=== PATIENT | male | born 1955 | race Caucasian/White ===

== ENCOUNTER → 2017-03-17 | Outpatient (CLI) | payer OTHER ==
[~2017-03-17] MED LIST: ASPUNK PO; LSNUNK PO; Toprol XL PO; ZCRUNK PO; amlodipine PO; nasonex
[2017-03-17 09:34] LABS: BASO % 0.7 %; BASO ABS # 0.05 K/uL (0-0.2); COMPLETE YES; EOS % 2.8 %; HEMATOCRIT 41.5 % (42-52); IG% 0.3 %; LYMPH ABS # 2.08 K/uL (1.2-3.4); MEAN CORPUSCULAR HEMOGLOBIN 29.4 pg (25-34); MEAN CORPUSCULAR HGB CONC 33.7 g/dl (32-36); MEAN PLATELET VOLUME 9.8 fL (7.4-10.4); MONO % 9.2 %; PLATELET COUNT 230 K/uL (130-400); RED BLOOD COUNT 4.77 M/uL (4.7-6.1); WHITE BLOOD COUNT 7.17 K/uL (4.8-10.8)
[2017-03-17 10:11] LABS: ALT/SGPT 51 U/L (12-78); AST/SGOT 22 U/L (15-37); BLOOD UREA NITROGEN 14 mg/dl (7-18); CALCIUM 8.8 mg/dl (8.5-10.1); CARBON DIOXIDE 29 mmol/L (21-32); CHLORIDE 99 mmol/L (98-107); CHOLESTEROL 143 mg/dl (0-200); GLUCOSE 112 mg/dl (70-99); POTASSIUM 3.9 mmol/L (3.5-5.1); SODIUM 134 mmol/L (136-145); TRIGLYCERIDES 160 mg/dl (0-150); VERY LOW DENSITY LIPOPROT CALC 32 mg/dl
[2017-03-17 10:14] LABS: CHOLESTEROL/HDL RATIO 3.8; HDL CHOLESTEROL 38 mg/dl; LDL CHOLESTEROL CALCULATED 73 mg/dl
== END | disposition home or self-care (01) ==
LOC: C.LAB1850 07:49
PROVIDERS: ATTEND Internal Medicine Cardiovascular Disease
DX: I65.29 Occlusion and stenosis of unspecified carotid artery (principal); E78.5 Hyperlipidemia, unspecified

== ENCOUNTER → 2017-10-18 | Outpatient (CLI) | payer OTHER ==
[2017-10-18 12:12] LABS: HEMATOCRIT 42.2 % (42-52); HEMOGLOBIN 14.6 g/dL (14.0-18.0); MEAN CELL VOLUME 85.9 fL (80-100); MEAN CORPUSCULAR HEMOGLOBIN 29.7 pg (25-34); MEAN CORPUSCULAR HGB CONC 34.6 g/dl (32-36); MEAN PLATELET VOLUME 9.9 fL (7.4-10.4); PLATELET COUNT 234 K/uL (130-400); RED CELL DISTRIBUTION WIDTH CV 13.4 % (11.5-14.5); RED CELL DISTRIBUTION WIDTH SD 42.1 fL (36.4-46.3); WHITE BLOOD COUNT 7.24 K/uL (4.8-10.8)
[2017-10-18 12:36] LABS: BLOOD UREA NITROGEN 15 mg/dl (7-18); CALCIUM 9.3 mg/dl (8.5-10.1); CARBON DIOXIDE 27 mmol/L (21-32); CREATININE 1.03 mg/dl (0.60-1.40); GLUCOSE 113 mg/dl (70-99); SODIUM 134 mmol/L (136-145)
[2017-10-18 12:42] LABS: ALT/SGPT 46 U/L (12-78); AST/SGOT 20 U/L (15-37)
== END | disposition home or self-care (01) ==
LOC: C.LAB1850 10:32
PROVIDERS: ATTEND Internal Medicine
DX: I10 Essential (primary) hypertension (principal); E78.5 Hyperlipidemia, unspecified; I25.10 Atherosclerotic heart disease of native coronary artery without angina pectoris; R73.01 Impaired fasting glucose; R97.20 Elevated prostate specific antigen [PSA]

== ENCOUNTER 2020-01-07 19:17 | Inpatient (IN) ==
--- NOTE | 2020-01-07 19:44 | Emergency Department Note ---
Impression & Plan Hypotension, Syncope, Acute dehydration, Elevated troponin ED Provider Note NAME: PATRICIA GEORGE AGE: 64 SEX: M : 1955 ARRIVES VIA: Ambulance INFORMANT: [Patient][ems, nurses] ED PROVIDER(S): [Abel Etienne MD] CHIEF COMPLAINT: Syncope HISTORY OF PRESENT ILLNESS: The patient is a 64-year-old male who presents to the ER by ambulance after a brief syncopal event. The patient was in baseline health this morning. He ate breakfast. He was golfing all day. It was 85+ degrees outside and quite bari. He was hot and tired and lightheaded. He only consumed a small amount of liquid during the golf outing. On the way home, he was driving and felt a bit lightheaded. The patient states that while he was at home, he was sitting on his porch, he drank a beer. The patient then began feeling weak and even more lightheaded. He went into the house and according to family, had a brief syncopal event. The patient was sitting and was helped down, there was no trauma. He states that he felt faint and began to sweat and had some loss of vision and then he had the syncopal event. He was out for less than 1 minute. There was no chest pain, no shortness of breath. The patient states that he already feels better. He thinks he just overdid it today outside in the heat. As per EMS, the patient's initial blood pressure was low. REVIEW OF SYSTEMS: See HPI for pertinent positives and negatives. A total of ten systems were reviewed and were otherwise negative. PMHx/PSHx: See Below SOCIAL HISTORY: See Below. PHYSICAL EXAM: GENERAL: Patient is in no acute distress. Face appears flushed. HEENT: No acute trauma, normocephalic atraumatic, mucous membranes moist, no nasal congestion, no scleral icterus. NECK: No stridor, no adenopathy, no meningismus, trachea is midline. LUNGS: Clear to auscultation bilaterally, no wheeze, no rhonchi, breath sounds equal. HEART: Without murmurs gallops or rubs, regular rate and rhythm. ABDOMEN: Soft, nontender, bowel sounds positive, no hernias, no peritonitis. EXTREMITIES: No cyanosis or edema, full range of motion of all the joints without pain or difficulty, no signs for acute trauma. NEUROLOGIC: Oriented x 3, no acute motor or sensory deficits, no focal weakness. SKIN: No rash, no jaundice, no diaphoresis. DIFFERENTIAL DIAGNOSIS: Infection, dehydration, metabolic abnormality, heat exhaustion, dysrhythmia, hypo/hyperglycemia, electrolyte disturbance, anemia, hypoxia, cardiac sources, intracerebral event, toxicologic, neurologic, as well as other pathologies. EMERGENCY DEPARTMENT COURSE/PROCEDURES: ECG: Indication was syncope. The EKG shows a sinus rhythm with a first-degree AV block. There is some baseline artifact. There is a potential old inferior infarct noted. The rate is 61. QTc is 430. There is no ST elevation, no PVCs. There are no old ECGs available for comparison. Continuous Cardiac Monitoring: An order was placed for continuous cardiac monitoring. The monitor shows a rate of 72 with sinus rhythm and a first-degree AV block. Critical Care Note: I have personally spent greater than 36 minutes of critical care time in the direct management of this patient. This includes bedside care, interpretation of diagnostic studies, and testing, discussion with consultants, patient, and family members, and other required patient management activities. This 36 minutes is in excess of all separately billable procedures. MEDICAL DECISION MAKING: There is no leukocytosis or concerning anemia. There is a normal platelet count. There is some elevation to the creatinine consistent with dehydration. No concerning electrolyte abnormality in need of emergent correction. No evidence for liver enzyme elevation. EKG showed a sinus rhythm, there was no acute ischemic change. Cardiac enzyme testing x1 is elevated at 1.46. This troponin elevation is consistent with potential cardiac injury or strain. Chest film did not show pneumonia or CHF. There was no significant mediastinal widening. The patient was hypotensive when first seen by the paramedics. Here in the ED, his blood pressure was slightly low but acceptable. He was given IV saline, 2 L. The patient feels markedly better since his 2 L have been administered, his blood pressure has improved. He feels more back to baseline. I spoke to the patient about his elevated troponin value, he understands that this is a concern. Hospitalization has been recommended for further work-up. The on-call hospitalist has been consulted. Further cardiac work-up is in order. Dysrhythmia, [place] are both possibilities Past Med/Surg History Medical History Arthritis (Chronic) CAD in [place] artery (Chronic) Carotid artery stenosis (Chronic) Enlarged prostate without lower urinary tract symptoms (luts) (Chronic) Essential hypertension (Chronic) Hyperlipidemia (Chronic) Prostate cancer (Chronic 01/15/18) "Rising PSA. Pretreatment PSA 6.840 Status post ultrasound-guided biopsies January 15, 2018 Adenocarcinoma the prostate [place] 3+3 and 3+4 Prostate volume 98 Prostate density 0.069 Status post completion of radiation therapy July 06, 2018. He received 7000 cGy utilizing hypo-fractionation. Rosacea (Chronic) Surgical History S/P tonsillectomy Family History Father Coronary arteriosclerosis Prostate cancer FH: deafness or hearing loss Hypertension Myocardial infarction Brother Coronary arteriosclerosis Prostate cancer Myocardial infarction Mother Lung cancer Hypertension Unknown FH: deafness or hearing loss Hypertension Uncle Myocardial infarction Denies family history of Ovarian cancer Breast cancer Colorectal cancer Social History Preferred Language: Romanian Communication Ability: Effective Dock Supervisor Required: No Beliefs That Will Affect Care: None marital status: Current Living Situation: Spouse current occupational status: retired Other Information That Helps Us Care for You: No Feels Safe at Home: Yes Safety Concerns: Feels Safe At This Time Smoking Status: Unknown if ever smoked Hx Alcohol Use: No Hx Substance Use: No Childhood Exposure to Second-Hand Smoke: No Dental Care, Regularly: Yes Physical Activity Frequency: 3-4 Times per Week Seatbelt Use: always Sunscreen Use: Yes Allergies Allergies Allergy/AdvReac Type Severity Reaction Status Date / Time No Known Allergies Allergy Verified 01/07/20 21:15 Home Meds Home Medications Medication Instructions Recorded Confirmed nitroglycerin 0.4 mg sublingual 0.4 mg SL DIRECTED PRN #25 tab 05/07/19 01/07/20 tablet aspirin 81 mg PO QAM 01/07/20 01/07/20 atorvastatin 80 mg PO HS 01/07/20 01/07/20 hydrochlorothiazide 12.5 mg PO QAM 01/07/20 01/07/20 lisinopril 40 mg PO QAM 01/07/20 01/07/20 metoprolol succinate 50 mg PO QAM 01/07/20 01/07/20 tamsulosin 0.4 mg PO QPM 01/07/20 01/07/20 Results & Data (ED) Vital Signs Vital Signs - 24 hr 01/07/20 19:25 01/07/20 19:30 01/07/20 19:34 Temperature 36.4 C L Temperature Source Oral Pulse Rate 61 59 L 61 Pulse Rate from SpO2 Sensor 57 L Pulse Rhythm Regular Pulse Strength Normal Respiratory Rate 12 14 24 Respiratory Effort / Characteristics Non-Labored Spontaneous Respiratory Depth Normal Respiratory Pattern Regular Blood Pressure 102/57 L 100/57 L 102/57 L Blood Pressure Mean 65 61 72 Blood Pressure Position Sitting Pulse Oximetry 92 98 Oxygen Delivery Method Room Air Sepsis Recent Fever Within 48 Hours No Sepsis Action Taken by Nursing No Action Required 01/07/20 20:30 01/07/20 21:01 01/07/20 21:30 Temperature Temperature Source Pulse Rate 65 73 72 Pulse Rate from SpO2 Sensor 65 73 70 Pulse Rhythm Pulse Strength Respiratory Rate 17 17 18 Respiratory Effort / Characteristics Respiratory Depth Respiratory Pattern Blood Pressure 104/61 139/77 135/73 Blood Pressure Mean 73 95 103 Blood Pressure Position Pulse Oximetry 95 98 98 Oxygen Delivery Method Sepsis Recent Fever Within 48 Hours Sepsis Action Taken by [place] Medications Current Medication List: was personally reviewed by me Laboratory Data Attestation: I reviewed the patient's lab results. Result diagrams: 01/07/20 20:01 01/07/20 22:59 Lab Results 01/07/20 01/07/20 Range/Units 20:01 20:01 WBC 10.04 (4.8-10.8) K/uL RBC 4.61 L (4.7-6.1) M/uL Hgb 13.4 L (14.0-18.0) g/dL Hct 39.2 L (42-52) % MCV 85.0 (80-100) fL MCH 29.1 (25-34) pg MCHC 34.2 (32-36) g/dL RDW Std Deviation 41.2 (36.4-46.3) fL RDW Coeff of [place] 13.5 (11.5-14.5) % Plt Count 190 (130-400) K/uL MPV 9.6 (7.4-10.4) fL Immature Gran % (Auto) 0.1 % Neut % (Auto) 80.2 % Lymph % (Auto) 10.2 % [place] % (Auto) 8.0 % Eos % (Auto) 1.3 % Baso % (Auto) 0.2 % Immature Gran # (Auto) 0.01 (0.00-0.02) K/uL Neut # (Auto) 8.06 H (1.4-6.5) K/uL Lymph # (Auto) 1.02 L (1.2-3.4) K/uL [place] # (Auto) 0.80 H (0.11-0.59) K/uL Eos # (Auto) 0.13 (0-0.5) K/uL Baso # (Auto) 0.02 (0-0.2) K/uL Sodium 135 L (136-145) mmol/L Potassium 3.5 (3.5-5.1) mmol/L Chloride 102 (98-107) mmol/L Carbon Dioxide 25 (21-32) mmol/L Anion Gap 8.0 (3-11) BUN 23 H (7-18) mg/dl Creatinine 1.55 H (0.6-1.4) mg/dl Est Cr Clr Drug Dosing 57.6 ml/min Est GFR ( Amer) 53.7 Est GFR (Non-Af Amer) 46.3 BUN/Creatinine Ratio 14.8 (10-20) Glucose 115 H (70-99) mg/dl Calcium 8.8 (8.5-10.1) mg/dl Magnesium 2.7 H (1.8-2.4) mg/dl Total Bilirubin 0.7 (0.2-1) mg/dl AST 22 (15-37) U/L ALT 37 (12-78) U/L Alkaline Phosphatase 77 (45-117) U/L Troponin I 1.460 H* (0-0.045) ng/ml Total Protein 7.0 (6.4-8.2) gm/dl Albumin 3.6 (3.4-5.0) gm/dl Globulin 3.4 (2.5-4.0) gm/dl Albumin/Globulin Ratio 1.1 (0.9-2) Administered Medications Sodium Chloride (Nss 1000ml) 1,000 mls @ 80 mls/hr IV .[id number] [facility] Stop: 02/06/20 22:38 Last Admin: 01/07/20 23:10 Dose: 80 mls/hr Documented by: [id number] Heparin Sodium/Dextrose (Heparin Sodium/Dextrose) 25,000 units in 500 mls @ 31 mls/hr IV .Q16H8M [facility]; Protocol Stop: 02/06/20 22:38 Last Admin: 01/07/20 23:29 Dose: 1,550 units/hr, 31 mls/hr Documented by: [id number] Cosigned by: [id number] Discontinued Medications Sodium Chloride (Nss 1000ml) 1,000 mls @ 999 mls/hr IV .Q1H1M [facility] Stop: 01/07/20 20:45 Last Infusion: 01/07/20 20:52 Dose: 0 mls/hr Documented by: [id number] Admin: 01/07/20 19:45 Dose: 999 mls/hr Documented by: [id number] Sodium Chloride (Nss 1000ml) 1,000 mls @ 999 mls/hr IV .Q1H1M [facility] Stop: 01/07/20 21:38 Last Infusion: 01/07/20 22:04 Dose: 0 mls/hr Documented by: [id number] Admin: 01/07/20 20:57 Dose: 999 mls/hr Documented by: [id number] Imaging Data Radiologist's Impression: XR chest 1V portable HISTORY: weakness COMPARISON: Chest 09/12/2018. FINDINGS: The lungs are clear. Cardiac silhouette is normal in size. No pleural effusions. No pneumothorax. IMPRESSION: No acute process. Blood Pressure Blood Pressure Findings: Elevated blood pressure Blood Pressure Disposition: further management by hospitalist Discharge Plan Visit Data *Final* Discharge Date/Time: 01/07/20 22:10 Chief Complaint: Syncope Stated Complaint: SYNCOPE ED Provider: Abel Etienne Discharge Problem: Hypotension, Syncope, Acute dehydration, Elevated troponin Patient Disposition: Admitted As Inpatient Condition: Good Discharge Instructions Interventions: ED Discharge Assessment Last Done: 01/07/20 22:10 Discharge Problem: Hypotension Qualifiers: Hypotension type: unspecified hypotension type Qualified Code(s): I95.9 - Hypotension, unspecified Syncope Qualifiers: Syncope type: unspecified Qualified Code(s): R55 - Syncope and collapse
[2020-01-07] MEDS ORDERED: SODIUM CHLORIDE 0.9% 1000ML 1,000 ML IV SCH (19:45)
--- NOTE | 2020-01-07 20:09 | XRay Report ---
XR chest 1V portable HISTORY: weakness COMPARISON: Chest 09/12/2018. FINDINGS: The lungs are clear. Cardiac silhouette is normal in size. No pleural effusions. No pneumot horax. IMPRESSION: No acute process. ACT 112: Negative or not required by law. Electronically signed by: Allan Retana M.D. 01/07/2020 8:07 PM
[2020-01-07 20:16] LABS: Basophils # (auto) 0.02 K/uL (0-0.2); Basophils % (auto) 0.2 %; Eosinophils # (auto) 0.13 K/uL (0-0.5); Eosinophils % (auto) 1.3 %; Hematocrit (blood only) 39.2 % (42-52); Hemoglobin 13.4 g/dL (14.0-18.0); Immature Granulocytes # (auto) 0.01 K/uL (0.00-0.02); Immature Granulocytes % (auto) 0.1 %; Lymphocytes # (auto) 1.02 K/uL (1.2-3.4); Lymphocytes % (auto) 10.2 %; Mean Corpuscular Hemoglobin 29.1 pg (25-34); Mean Corpuscular Hgb Conc 34.2 g/dL (32-36); Mean Platelet Volume 9.6 fL (7.4-10.4); Neutrophils # (auto) 8.06 K/uL (1.4-6.5); Neutrophils % (auto) 80.2 %; Platelet Count 190 K/uL (130-400); RDW Coefficient of Variation 13.5 % (11.5-14.5); RDW Standard Deviation 41.2 fL (36.4-46.3); Red Blood Count 4.61 M/uL (4.7-6.1); White Blood Count 10.04 K/uL (4.8-10.8)
[2020-01-07 20:33] LABS: Albumin Level 3.6 gm/dl (3.4-5.0); BUN Creatinine Ratio 14.8 (10-20); Calcium 8.8 mg/dl (8.5-10.1); Creatinine Clr Calc Pharmacy 57.6 ml/min; Est GFR (African American) 53.7; Est GFR (Non-African American) 46.3; Magnesium 2.7 mg/dl (1.8-2.4); Potassium 3.5 mmol/L (3.5-5.1)
[2020-01-07] MEDS ORDERED: SODIUM CHLORIDE 0.9% 1000ML 1,000 ML IV ONE (20:38)
[2020-01-07 20:49] LABS: Albumin Globulin Ratio 1.1 (0.9-2); Bilirubin,Total 0.7 mg/dl (0.2-1); Globulin 3.4 gm/dl (2.5-4.0); Troponin I 1.46 ng/ml (0-0.045)
--- NOTE | 2020-01-07 21:45 | History & Physical Report ---
Date of Service January 07, 2020 Assessment & Plan (1) Non-STEMI (non-ST elevated myocardial infarction): Non-STEMI/CAD/hypertension- The patient will be admitted to telemetry for serial cardiac enzymes, serial EKG's, cardiac rhythm monitoring and a 2-D echocardiogram with Dopplers. Heparin drip standard dose per protocol without bolus. Continue aspirin 81 mg every morning. Continue metoprolol succinate 50 mg every morning Hold HCTZ and lisinopril 40 mg daily for now due to acute kidney injury. Consult cardiology. Follows with Dr. Barker Present on Admission?: Yes (2) Syncope: Symptoms seem to be primarily related to acute dehydration, essentially a form of heat exhaustion. However, patient has had a non-STEMI, as noted above. Present on Admission?: Yes (3) Acute kidney injury: Creatinine 1.55 upon admission, with baseline 1.03-1.16. We will hold HCTZ and lisinopril. Repeat laboratories in a.m., after normal saline IV fluid rehydration, and may resume lisinopril at that time if creatinine improved sufficiently Present on Admission?: Yes (4) Acute dehydration: Received IV fluid bolus while in ED. NSS at 80 mL's per hour Present on Admission?: Yes (5) CAD in [place] artery: See above Present on Admission?: Yes (6) Essential hypertension: See above Present on Admission?: Yes (7) Hyperlipidemia: Continue atorvastatin 80 mg at bedtime Present on Admission?: Yes (8) Prostate cancer: Continue tamsulosin 0.4 mg p.o. in the evening Present on Admission?: Yes History of Present Illness Chief Complaint: The patient presents to the emergency department by ambulance after a syncopal event that occurred just prior to arrival. Primary Care Provider: Young Sosa MD The patient is a 64-year-old male with a past medical history including CAD, hyperlipidemia, hypertension, carotid artery stenosis, arthritis and prostate cancer. He reports that he was outside golfing on a hot day, and had not adequately kept up with his fluid intake. On his way home he felt somewhat disoriented, and after arriving home and having something to eat and a beer, he had a syncopal episode witnessed by his daughter of duration less than 1 minute. He did not have loss of bowel or bladder control. At this time he feels back to his baseline. He did not have any premonitory symptoms of chest pain, short ness of breath, weakness of arms or legs. He has not had any recent travels or sick exposures, and denies any COVID-19 exposures. Work-up in the emergency department included laboratories with a troponin of 1.46, and a creatinine of 1.55. At that time, we started the patient on a heparin drip. Allergies Allergy/AdvReac Type Severity Reaction Status Date / Time No Known Allergies Allergy Verified 01/07/20 21:15 Home Medications Home Medications Medication Instructions Recorded Confirmed Type nitroglycerin 0.4 mg sublingual 0.4 mg SL DIRECTED PRN #25 tab 05/07/19 01/07/20 History tablet aspirin 81 mg PO QAM 01/07/20 01/07/20 History atorvastatin 80 mg PO HS 01/07/20 01/07/20 History hydrochlorothiazide 12.5 mg PO QAM 01/07/20 01/07/20 History lisinopril 40 mg PO QAM 01/07/20 01/07/20 History metoprolol succinate 50 mg PO QAM 01/07/20 01/07/20 History tamsulosin 0.4 mg PO QPM 01/07/20 01/07/20 History Past Med/Surg History Medical History Arthritis (Chronic) CAD in [place] artery (Chronic) Carotid artery stenosis (Chronic) Enlarged prostate without lower urinary tract symptoms (luts) (Chronic) Essential hypertension (Chronic) Hyperlipidemia (Chronic) Prostate cancer (Chronic 01/15/18) "Rising PSA. Pretreatment PSA 6.840 Status post ultrasound-guided biopsies January 15, 2018 Adenocarcinoma the prostate [place] 3+3 and 3+4 Prostate volume 98 Prostate density 0.069 Status post completion of radiation therapy July 06, 2018. He received 7000 cGy utilizing hypo-fractionation. Rosacea (Chronic) Surgical History S/P tonsillectomy Family History Father Coronary arteriosclerosis Prostate cancer FH: deafness or hearing loss Hypertension Myocardial infarction Brother Coronary arteriosclerosis Prostate cancer Myocardial infarction Mother Lung cancer Hypertension Unknown FH: deafness or hearing loss Hypertension Uncle Myocardial infarction Denies family history of Ovarian cancer Breast cancer Colorectal cancer Social History Preferred Language: Irish Communication Ability: Effective Batch Tank Controller Required: No Beliefs That Will Affect Care: None marital status: Current Living Situation: Spouse current occupational status: retired Other Information That Helps Us Care for You: No Feels Safe at Home: Yes Safety Concerns: Feels Safe At This Time Smoking Status: Unknown if ever smoked Hx Alcohol Use: No Hx Substance Use: No Childhood Exposure to Second-Hand Smoke: No Dental Care, Regularly: Yes Physical Activity Frequency: 3-4 Times per Week Seatbelt Use: always Sunscreen Use: Yes Review of Systems Review of Systems: The patient denies chest pain, palpitations, shortness of breath, dyspnea on exertion, cough, lower extremity swelling, sore throat, fevers, chills, sweats, weight change, fatigue, nausea, vomiting, diarrhea , constipation, abdominal pain, pelvic pain, blood in urine or stool, dysuria, urinary frequency or urgency, lightheadedness, dizziness, headache, rash, abnormal bruising or bleeding, imbalance, focal weakness, numbness or tingling in arms or legs, generalized arthralgias or myalgias, back or neck pain, or night sweats. The review of systems is otherwise negative other than for that already noted above, and at least 10 systems have been reviewed. Physical Exam Physical Exam: The patient is awake, alert and oriented 3, well developed and well nourished, normocephalic and atraumatic, lying in bed and in no acute distress. HEENT--PERRL, EOMI, mucous membranes and oropharynx normal. Neck--supple. No JVD. No bruits. Thyroid normal, trachea midline, no adenopathy. Heart--normal S1 and S2. No murmurs, rubs or gallops. Lungs--clear bilaterally, no respiratory distress, no accessory muscle use. Abdomen--normal bowel sounds and soft. Nontender. Nondistended. Obese. Extremities--no cyanosis or clubbing. No edema. Dermatologic--normal skin turgor, normal color, no abnormal lymph nodes, no rash. Neurologic--cranial nerves II through XII grossly intact. Rheumatologic--normal range of motion. Psychiatric--normal affect. Results & Data Results & Data ([facility]) Vital Signs (Past 12 Hours) Vital Signs Temp Pulse Resp BP Pulse Ox 01/07/20 21:30 72 18 135/73 98 01/07/20 21:01 73 17 139/77 98 01/07/20 20:30 65 17 104/61 95 01/07/20 19:34 97.5 F L 61 24 102/57 L 98 01/07/20 19:30 59 L 14 100/57 L 92 01/07/20 19:25 61 12 102/57 L Laboratory Results Laboratory Results WBC 10.04 K/uL (4.8-10.8) 01/07/20 20: RBC 4.61 M/uL (4.7-6.1) L 01/07/20 20: Hgb 13.4 g/dL (14.0-18.0) L 01/07/20 20:01 Hct 39.2 % (42-52) L 01/07/20 20: MCV 85.0 fL (80-100) 01/07/20 20: MCH 29.1 pg (25-34) 01/07/20 20: MCHC 34.2 g/dL (32-36) 01/07/20 20: RDW Std Deviation 41.2 fL (36.4-46.3) 01/07/20 20: RDW Coeff of [place] 13.5 % (11.5-14.5) 01/07/20 20: Plt Count 190 K/uL (130-400) 01/07/20 20: MPV 9.6 fL (7.4-10.4) 01/07/20 20: Immature Gran % (Auto) 0.1 % 01/07/20 20:01 Neut % (Auto) 80.2 % 01/07/20 20: Lymph % (Auto) 10.2 % 01/07/20 20: [place] % (Auto) 8.0 % 01/07/20 20:01 Eos % (Auto) 1.3 % 01/07/20 20:01 Baso % (Auto) 0.2 % 01/07/20 20:01 Immature Gran # (Auto) 0.01 K/uL (0.00-0.02) 01/07/20 20:01 Neut # (Auto) 8.06 K/uL (1.4-6.5) H 01/07/20 20:01 Lymph # (Auto) 1.02 K/uL (1.2-3.4) L 01/07/20 20:01 [place] # (Auto) 0.80 K/uL (0.11-0.59) H 01/07/20 20:01 Eos # (Auto) 0.13 K/uL (0-0.5) 01/07/20 20:01 Baso # (Auto) 0.02 K/uL (0-0.2) 01/07/20 20:01 APTT 24.1 Seconds (21.0-31.0) 01/07/20 23:01 PTT Ratio 0.9 01/07/20 23:01 Sodium 135 mmol/L (136-145) L 01/08/20 02:22 Potassium 4.3 mmol/L (3.5-5.1) D 01/08/20 03:09 Chloride 103 mmol/L (98-107) 01/08/20 02:22 Carbon Dioxide 25 mmol/L (21-32) 01/08/20 02:22 Anion Gap 7.0 (3-11) 01/08/20 02:22 BUN 18 mg/dl (7-18) 01/08/20 02:22 Creatinine 1.17 mg/dl (0.6-1.4) 01/08/20 02:22 Est Cr Clr Drug Dosing 76.3 ml/min 01/08/20 02:22 Est GFR ( Amer) 75.4 01/08/20 02:22 Est GFR (Non-Af Amer) 65.0 01/08/20 02:22 BUN/Creatinine Ratio 15.8 (10-20) 01/08/20 02:22 Glucose 122 mg/dl (70-99) H 01/08/20 02:22 Calcium 8.5 mg/dl (8.5-10.1) 01/08/20 02:22 Magnesium 2.7 mg/dl (1.8-2.4) H 01/07/20 20:01 Total Bilirubin 0.7 mg/dl (0.2-1) 01/07/20 20:01 AST 22 U/L (15-37) 01/07/20 20:01 ALT 37 U/L (12-78) 01/07/20 20:01 Alkaline Phosphatase 77 U/L (45-117) 01/07/20 20:01 Troponin I 2.220 ng/ml (0-0.045) H* 01/07/20 22:59 Total Protein 7.0 gm/dl (6.4-8.2) 01/07/20 20:01 Albumin 3.6 gm/dl (3.4-5.0) 01/07/20 20:01 Globulin 3.4 gm/dl (2.5-4.0) 01/07/20 20:01 Albumin/Globulin Ratio 1.1 (0.9-2) 01/07/20 20:01 Urine Color Yellow 01/08/20 02:30 Urine Appearance Clear (Clear) 01/08/20 02:30 Urine pH 6.5 (4.5-7.5) 01/08/20 02:30 Ur Specific [place] 1.015 (1.000-1.030) 01/08/20 02:30 Urine Protein Negative (Negative) 01/08/20 02:30 Urine Glucose (UA) Negative (Negative) 01/08/20 02:30 Urine Ketones Negative (Negative) 01/08/20 02:30 Urine Blood Negative (Negative) 01/08/20 02:30 Urine Nitrite Negative (Negative) 01/08/20 02:30 Urine Bilirubin Negative (Negative) 01/08/20 02:30 Urine Urobilinogen Negative (Negative) 01/08/20 02:30 Ur Leukocyte Esterase Negative (Negative) 01/08/20 02:30 Diagnostic Findings [place], [place] [phone] XRay Report Patient: PATRICIA GEORGE Date: 01/07/20 MR#: [id number]: [address] Acct ID:[id number]: Date: [address] [place] [address] Zip: [place] [address] Age: 64Location: ED Sex: M Room/Bed: Att Phy:Diagnosis: SYNCOPE Harini Phy: Young Sosa MDService Date: 01/07/20 Fam Phy:Interpreting Phy: Allan Retana MD Admit Phy: Ordering Phy: Abel Etienne M.D. cc: ~ XR chest 1V portable HISTORY: weakness COMPARISON: Chest 09/12/2018. FINDINGS: The lungs are clear. Cardiac silhouette is normal in size. No pleural effusions. No pneumothorax. IMPRESSION: No acute process. ACT 112: Negative or not required by law. Electronically signed by: Allan Retana M.D. 01/07/2020 8:07 PM Dictated: 01/07/202003 Transcribed: 01/07/202003 Code Status & VTE Plan Code Status Full code VTE Prophylaxis Plan VTE Prophylaxis will be ordered: Yes PG Care Time/CCT Total # of Minutes Spent Total Time Spent with Patient: Total time spent is greater than 50% in coordination of care (as documented) at patient's floor/unit and/or counseling patient: Coding Level of Care Code 24669 Initial Inpt Care Lvl 3 Diagnoses Non-STEMI (non-ST elevated myocardial infarction) I21.4 Syncope R55 Syncope type: unspecified Acute kidney injury N17.9 Acute dehydration E86.0 CAD in [place] artery I25.10 Essential hypertension I10 Hyperlipidemia E78.5 Prostate cancer C61 (1) Syncope Syncope type: unspecified Qualified Code(s): R55 - Syncope and collapse
[2020-01-07] MEDS ORDERED: ALUMINUM/MAGNESIUM SUSP 30 ML UDC PO PRN (22:39)
[2020-01-07] MEDS ORDERED: MAGNESIUM HYDROXIDE SUSP 30 ML UDC PO PRN (22:39)
[2020-01-07] MEDS ORDERED: ONDANSETRON INJ 2 MG/ML 2 ML VIAL IV PRN (22:39)
[2020-01-07] MEDS ORDERED: Heparin IV Standard *NO* Bolus IV ONE (22:39)
[2020-01-07] MEDS ORDERED: ACETAMINOPHEN 325 MG TAB PO PRN (22:39)
[2020-01-07] MEDS ORDERED: NITROGLYCERIN SL 0.4 MG/TAB TAB SL PRN (22:39)
[2020-01-07] MEDS ORDERED: HEPARIN SODIUM/DEXTROSE 25,000 UNITS/500 ML BAG IV SCH (22:39)
[2020-01-07] MEDS: SODIUM CHLORIDE 0.9% 1000ML 1,000 ML IV SCH (23:10)
[2020-01-07 23:22] LABS: Partial Thromboplastin Ratio 0.9; Partial Thromboplastin Time 24.1 Seconds (21.0-31.0)
[2020-01-07 23:27] LABS: BUN Creatinine Ratio 14.9 (10-20); Calcium 9.1 mg/dl (8.5-10.1); Est GFR (African American) 58.6; Est GFR (Non-African American) 50.6; Potassium 3.7 mmol/L (3.5-5.1)
[2020-01-07 23:38] LABS: Troponin I 2.22 ng/ml (0-0.045)
[2020-01-07] MEDS ORDERED: SODIUM CHLORIDE 0.65% NA SOLN 45 ML (OCEAN) PRN (23:48)
[2020-01-08 02:51] LABS: Appearance Urine Clear (Clear); Bilirubin Urine Negative (Negative); Blood Urine Negative (Negative); Color Urine Yellow; Glucose Urine UA Negative (Negative); Ketones Urine Negative (Negative); Leukocyte Esterase Urine Negative (Negative); Nitrite Urine Negative (Negative); Protein Urine Negative (Negative); Specific Gravity Urine 1.015 (1.000-1.030); Urobilinogen Urine Negative (Negative); pH Urine 6.5 (4.5-7.5)
[2020-01-08 02:59] LABS: BUN Creatinine Ratio 15.8 (10-20); Calcium 8.5 mg/dl (8.5-10.1); Creatinine Clr Calc Pharmacy 76.3 ml/min; Est GFR (African American) 75.4
[2020-01-08 06:12] LABS: Basophils # (auto) 0.02 K/uL (0-0.2); Basophils % (auto) 0.2 %; Eosinophils # (auto) 0.02 K/uL (0-0.5); Eosinophils % (auto) 0.2 %; Hematocrit (blood only) 40.5 % (42-52); Hemoglobin 13.8 g/dL (14.0-18.0); Immature Granulocytes # (auto) 0.03 K/uL (0.00-0.02); Immature Granulocytes % (auto) 0.2 %; Lymphocytes % (auto) 7.7 %; Mean Corpuscular Hgb Conc 34.1 g/dL (32-36); Mean Corpuscular Volume 85.1 fL (80-100); Mean Platelet Volume 9.6 fL (7.4-10.4); Monocytes # (auto) 0.62 K/uL (0.11-0.59); Monocytes % (auto) 4.8 %; Neutrophils # (auto) 11.31 K/uL (1.4-6.5); Neutrophils % (auto) 86.9 %; Platelet Count 205 K/uL (130-400); RDW Coefficient of Variation 13.5 % (11.5-14.5); RDW Standard Deviation 41.6 fL (36.4-46.3); Red Blood Count 4.76 M/uL (4.7-6.1)
[2020-01-08 06:16] LABS: Estimated Average Glucose 123 mg/dl; Hemoglobin A1C 5.9 % (4.5-5.6)
[2020-01-08 06:25] LABS: Partial Thromboplastin Ratio 1.2; Partial Thromboplastin Time 34.4 Seconds (21.0-31.0); Prothrombin Time 10.7 Seconds (9.0-12.0)
[2020-01-08] MEDS ORDERED: HEPARIN IV BOLUS 7,000 UNITS in SYRINGE 0 ML IV ONE (06:45)
[2020-01-08 06:46] LABS: BUN Creatinine Ratio 15.6 (10-20); Calcium 9.1 mg/dl (8.5-10.1); Creatinine Clr Calc Pharmacy 82.7 ml/min; Est GFR (Non-African American) 71.6; Potassium 3.9 mmol/L (3.5-5.1)
[2020-01-08 06:47] LABS: Albumin Level 3.7 gm/dl (3.4-5.0); BUN Creatinine Ratio 15.2 (10-20); Calcium 8.7 mg/dl (8.5-10.1); Creatinine Clr Calc Pharmacy 81.9 ml/min; Est GFR (African American) 82.1; Est GFR (Non-African American) 70.9; Magnesium 2.3 mg/dl (1.8-2.4); Potassium 3.8 mmol/L (3.5-5.1)
[2020-01-08 06:51] LABS: Bilirubin,Total 1.1 mg/dl (0.2-1); Globulin 3.6 gm/dl (2.5-4.0); Total Protein 7.3 gm/dl (6.4-8.2)
[2020-01-08 07:03] LABS: Troponin I 2.03 ng/ml (0-0.045)
[2020-01-08] MEDS ORDERED: lisinopriL 40 MG TAB PO SCH (09:00)
[2020-01-08] MEDS ORDERED: METOPROLOL SUCC 50MG EXT REL TAB PO SCH (09:00)
[2020-01-08] MEDS ORDERED: ASPIRIN 81 MG ECTAB PO SCH (09:00)
[2020-01-08] MEDS: SODIUM CHLORIDE 0.9% 1000ML 1,000 ML IV SCH (11:20)
[2020-01-08 12:07] VITALS: BP 117/71; PULSE 66; TEMP 98.1; O2SAT 95
--- NOTE | 2020-01-08 12:30 | Discharge Summary ---
Date of Service January 08, 2020 Admission HPI Per Admitting Provider The patient is a 64-year-old male with a past medical history including CAD, hyperlipidemia, hypertension, carotid artery stenosis, arthritis and prostate cancer. He reports that he was outside golfing on a hot day, and had not adequately kept up with his fluid intake. On his way home he felt somewhat disoriented, and after arriving home and having something to eat and a beer, he had a syncopal episode witnessed by his daughter of duration less than 1 minute. He did not have loss of bowel or bladder control. At this time he feels back to his baseline. He did not have any premonitory symptoms of chest pain, sh ortness of breath, weakness of arms or legs. He has not had any recent travels or sick exposures, and denies any COVID-19 exposures. Work-up in the emergency department included laboratories with a troponin of 1.46, and a creatinine of 1.55. At that time, we started the patient on a heparin drip. Admission Exam Per Admitting Provider The patient is awake, alert and oriented 3, well developed and well nourished, normocephalic and atraumatic, lying in bed and in no acute distress. HEENT--PERRL, EOMI, mucous membranes and oropharynx normal. Neck--supple. No JVD. No bruits. Thyroid normal, trachea midline, no adenopathy. Heart--normal S1 and S2. No murmurs, rubs or gallops. Lungs--clear bilaterally, no respiratory distress, no accessory muscle use. Abdomen--normal bowel sounds and soft. Nontender. Nondistended. Obese. Extremities--no cyanosis or clubbing. No edema. Dermatologic--normal skin turgor, normal color, no abnormal lymph nodes, no rash. Neurologic--cranial nerves II through XII grossly intact. Rheumatologic--normal range of motion. Psychiatric--normal affect. Principal Diagnosis NSTEMI, KYLAH Discharge Exam Constitutional WD/WN, vitals as above ENMT external ear and nose normal, oropharynx normal Respiratory normal respiratory effort, lungs clear to auscultation Cardiovascular RRR, no murmur, no edema Gastrointestinal (Abdomen) normal bowel sounds, soft, nontender, no hepatosplenomegaly Skin no rashes, warm and dry Psychiatric A+Ox3, euthymic affect Discharge Data Allergies Allergy/AdvReac Type Severity Reaction Status Date / Time No Known Allergies Allergy Verified 01/07/20 21:15 Consultations 01/07/20 20:54 ED Decision to Admit Stat 01/07/20 22:39 Consult Cardiology Routine Consult Case Management - Discharge Planning Routine Hospital Course (1) Non-STEMI (non-ST elevated myocardial infarction): NSTEMI in the setting of existing CAD: - Pt was admitted overnight to telemetry for cardiac monitoring, serial troponins, serial EKGs. - Overnight no acute events, no events on telemetry monitoring (sinus 70s). - Troponin peaked to 2.2 then began to decrease to 2.03 last value collected. - Heparin drip started in ED, discontinued this morning. - Continue aspirin 81 mg daily. - Continue metoprolol succinate 50 mg daily. - Continue HCTZ and lisinopril 40 mg daily as below following resolution of KYLAH. - Echo performed: -> EF 55-60%, LVF normal, small area of akinesis of proximal inferoposterior wall. -> mild MR. - Cardiology consulted and appreciate recommendations, ok to discharge with follow up with Dr. Barker. - Event likely 2/2 demand due to dehydration and KYLAH in already compromised coronary artery vasculature. - Upon rehydration patient felt better and troponin and Cr began to correct. Acute kidney injury and near-syncopal event 2/2 acute dehydration: - Creatinine 1.55 upon admission, with baseline 1.03-1.16. - Returned to baseline 1.08 with NSS rehydration overnight. - Resume lisinopril, HCTZ on discharge. Acute dehydration: - Received IV fluid bolus while in ED. - NSS at 80 mL/hr d/c'ed this morning. - Advised patient on proper hydration practices when next golfing to prevent similar occurrences. HTN: - Continue home medications on discharge. HLD: - Continue atorvastatin 80 mg at bedtime - May benefit from the addition of Zetia given LDL >70, total cholesterol 150. Hx Prostate cancer: - Continue tamsulosin 0.4 mg p.o. in the evening Dispo: home with self-care (2) Acute kidney injury: (3) Acute dehydration: (4) Elevated troponin: (5) Hyperlipidemia: (6) Essential hypertension: (7) Carotid artery stenosis: (8) CAD in [place] artery: Total Time Total Time Spent Total Time Spent (In Minutes): s>30 Discharge Plan Discharge Items Patient Disposition: Home - Self-Care Reason For Visit: NON-STEMI, SYNCOPE Discharge Diagnosis: NSTEMI Condition on Discharge: Good Activity: Per Instructions section Non-emergency contact: Primary Care Provider and Wave Guide Assembler Call non-emergency contact if: you have any medication questions and your symptoms worsen Follow-up/Referrals: Young Sosa MD [Primary Care Provider] - Chidi Barker MD [Physician] - Diet: Heart Healthy Addtl Attending Provider Instructions: You were admitted to the hospital for dehydration and found to have an NSTEMI, a kind of heart attack. This was likely in part due to dehydration from golfing without staying hydrated all day yesterday. You kidney function tests when you arrived were slightly elevated as well. You were given fluids and started on a blood thinner. You had an Echocardiogram which did not show any changes in your heart function. We followed you cardiac enzymes in your labwork and they continued to get better over time. Cardiology cleared you for discharge home with the following recommendations: 1) Continue your home medications as you were prior to admission. 2) Your Hemoglobin A1c, a blood test that checks your sugar, was 5.9%. This suggests that you are prediabetic. In order to prevent diabetes it will be important moving forward to significantly limit your amount of sugary beverages, as well as carbohydrates such as potatoes, rice, pasta, and bread. If you do this, you could prevent diabetes in the future. 3) You should have close follow up with both your reimbursement coordinator and with your primary care doctor. Pending Studies at Discharge: No Stand-Alone Forms: My [facility] [employer], Smoking Cessation Medications and DC Order Prescriptions: Continued nitroglycerin 0.4 mg tablet, sublingual 0.4 mg SL DIRECTED PRN (Reason: Chest Pain) Qty: 25 RF: 0 aspirin 81 mg Tablet,Delayed Release (Dr/Ec) 81 mg PO QAM RF: 0 atorvastatin 80 mg tablet 80 mg PO HS RF: 0 metoprolol succinate 50 mg tablet extended release 24 hr 50 mg PO QAM RF: 0 tamsulosin 0.4 mg capsule 0.4 mg PO QPM RF: 0 lisinopril 40 mg tablet 40 mg PO QAM RF: 0 hydrochlorothiazide 12.5 mg tablet 12.5 mg PO QAM RF: 0 Discharge Orders: Discharge Order (Routine); Ordered 01/08/20 Ordered By: Roberta Blackman/Other Patient Handouts: Foods Heart Healthy Admission Data Admit Date/Time: 01/07/20 21:42 Attending Provider: Edilson Amin Admit Provider: Galdino Marina Primary Care Provider: Young Sosa Other Providers: Galdino Marina ; Chidi Barker Other Interventions: Discharge Summary Assessment (RN) Last Done: 01/08/20 13:00 DC Date/Time DO NOT enter until pt leaves facility: 01/08/20 15:00 Supervising Physician Co-Signing Physician Notes I personally examined the patient and verified all howe points of history and exam, discussed case, and agree with decision making with Dr Vidal. feeling much better since fluids. did not drink much yesterday. discussed heat, dehydration, symptoms, demand ischemia all in detail - answered all questions to the best of my ability. vitals noted nad heent nc at mmm breathing unlabored no accessory muscles good effort skin no rashes no pallor or icterus KYLAH - due to dehydration - improved. discussed fluiid intake to maintain hydration at home syncope - due to dehydration. as above demand ischemia - due to all of above creating low flow state - given that his trop was reasonably elevated, quite reasonable to label as NSTEMI as well, although fortunately without any worrisome sequellae (new wall motion issues, CHF, rhythm problems, etc) - safe/stable for home outpt f/u Resident Activity Tracking Resident Involvement: Resident Care Provided Care Provided: Adult Hospital Medicine
[2020-01-08 12:54] LABS: Partial Thromboplastin Ratio 1.6; Partial Thromboplastin Time 44.1 Seconds (21.0-31.0)
--- NOTE | 2020-01-08 12:58 | XCELERA ---
[id number]
--- NOTE | 2020-01-08 13:43 | Cardiology Consultation ---
Date of Consultation January 08, 2020 Assessment & Plan (1) Syncope: Mr. Alvarado is a 64-year-old male with a history of Multivessel CAD, Hypertension, Dyslipidemia, Prostate Cancer s/p XRT (2018) -- who was admitted last evening following a Syncopal Episode which was most likely secondary to dehydration, hypotension, and likely had a vagal component. Patient played 18 holes of golf with his friends yesterday in 90 degree weather sipped on small and unpleasantly warm Powerade. He felt fine throughout his round of golf and did not have any limiting cardiopulmonary symptoms at any time. After his round of golf was over and he got into his car to drive home -- he felt like his vision was "dim" in both eyes for a few moments and he felt mildly lightheaded. After he got home, he drank a beer and sat down on his stool. Patient then developed a sensation that he needed to have a bowel movement and he felt queasy. Patient subsequently stood up and tried to walk to the restroom, then he became profoundly lightheaded, his vision went black, and he was lowered down by his daughter. Patient was unconscious for several seconds but less than a minute, and then came around. His BP was 89/40 when EMS arrived. Patient had significant improvement in his condition shortly after IVF's were initiated. At the present time he feels fine, and at his baseline. His telemetry has shown normal sinus rhythm throughout. His blood pressures have come up with IV fluids. Recommend the followin. Suggested pre hydrating before going out in the warmer weather, preferably with water. 2. Avoid alcoholic beverages during or after prolonged exposure to a warm environment. 3. Continue drinking water when in warmer temperatures even if he isn't thirsty. (2) Hypotension: -- Now resolved. -- Resume usual anti-hypertensive / cardiac regimen. (3) Acute dehydration: -- Resolved. -- Stay well hydrated as outlined above. (4) Elevated troponin: Patient has not experienced any angina pectoris or anginal equivalent symptoms at any time in the past 48 hours. -- Elevated troponin is most likely related to hypoperfusion in the presence of multivessel CAD. -- Echocardiogram shows a small area of proximal infero-posterior wall akinesis -- wall is thinned out suggesting this is old. -- This does not appear to be an acute coronary syndrome. -- Continue Toprol XL 50 mg daily. -- Continue Lisinopril 40 mg daily. -- Continue Lipitor 80 mg q.h.s. -- Continue Aspirin 81 mg daily. -- Continue Hydrochlorothiazide 12.5 mg daily. -- Maintain an active lifestyle, and a heart healthy diet. (5) CAD in [place] artery: Despite an elevated troponin I level, this does not appear to be in acute coronary syndrome. -- Continue medical management as outlined above. -- Stop heparin drip. Patient may be discharged home from a cardiac standpoint. He can follow up with us in the office in 1-2 weeks. History of Present Illness Reason for Consultation: -- Syncope. -- Multivessel CAD. -- Elevated Troponin I level. Requesting Physician: Edilson Amin DO Attending Physician: Young German MD History of Present Illness Mr. Alvarado is a 64-year-old male with a history of Multivessel CAD, Hypertension, Dyslipidemia, Prostate Cancer s/p XRT (2018) -- who was admitted last evening following a Syncopal Episode. Patient was in his usual state of health yesterday, and played 18 holes of golf with his friends. He did not pre-hydrate before going out in the warm weather, and he only had a small Powerade with him that he sipped on occasionally. However his Powerade was very warm from being exposed to the sun, and was not very palatable. Patient did not experience any limiting cardiopulmonary sy mptoms or any symptoms whatsoever until after his round of golf was over and he got into his car to drive home. He felt like his vision was "dim" in both eyes for a few moments and he felt mildly lightheaded. After he got home, he drank a beer and sat down on his stool. Patient then developed a sensation that he had to have a bowel movement and he felt queasy. Patient subsequently stood up and tried to walk to the restroom, then he became profoundly lightheaded, his vision went black, and he was lowered down by his daughter. Patient was unconscious for several seconds but less than a minute, and then came around. He was not confused afterwards, nor did he have any vomiting, chest discomfort, dyspnea, or a sensation of palpitations. There was no seizure-like movements nor did he have any postictal type syndrome. He did however have a small amount of encopresis (that he did not realize until after he was at the emergency room). EMS was activated. When they arrived, he was sitting on a couch but was hypotensive with a blood pressure of 89/40. Patient was then brought into the emergency room for further evaluation, and he was given IV fluids. He states that his shortly after the IV fluids were started he felt completely back to normal. Patient continues to feel well today. He denies any chest discomfort or angina at any time in the past 48 hours. He specifically denies any chest pain, heaviness, tightness, discomfort, or burning. He denies any exertional neck, jaw, back, or arm pain. He denies any shortness of breath, unusual dyspnea exertion, or recent changes in exertional tolerance. He further denies any orthopnea or PND. He has not had any palpitations associated with his syncope or at other times. His initial troponin I level was elevated at 1.460 ng/ml, peaked at 2.220 ng/ml, and is now trending downward. Patient has not had any arrhythmias on telemetry monitoring since he was admitted. His EKGs have shown nonspecific lateral T- wave abnormality. He has had the following studies/procedures: CARDIAC CATHETERIZATION 03/06/2009: -- LMCA -- 25% Distal stenosis. -- LAD -- 50% Proximal stenosis, 100% midvessel occlusion. [id number] bridging collaterals. Right to left collaterals. -- LCx -- 50% Midvessel stenosis, 25% mid to distal stenosis. -- OM3 -- 25% Proximal stenosis. -- RCA -- 25% Ostial stenosis, 50% midvessel stenosis, 25% distal stenosis. -- PDA -- Small caliber vessel with 50% stenosis. Posterior lateral branch -- GINNA -- 50% Proximal stenosis -- LVEF 55%. -- Normal wall motion. -- No mitral regurgitation. CAROTID DUPLEX 06/16/2016: -- Less than 50% bilateral ICA stenosis. Allergies Allergy/AdvReac Type Severity Reaction Status Date / Time No Known Allergies Allergy Verified 01/07/20 21:15 Home Medications Home Medications Medication Instructions Recorded Confirmed Type nitroglycerin 0.4 mg sublingual 0.4 mg SL DIRECTED PRN #25 tab 05/07/19 01/07/20 History tablet aspirin 81 mg PO QAM 01/07/20 01/07/20 History atorvastatin 80 mg PO HS 01/07/20 01/07/20 History hydrochlorothiazide 12.5 mg PO QAM 01/07/20 01/07/20 History lisinopril 40 mg PO QAM 01/07/20 01/07/20 History metoprolol succinate 50 mg PO QAM 01/07/20 01/07/20 History tamsulosin 0.4 mg PO QPM 01/07/20 01/07/20 History Patient History Medical History Arthritis (Chronic) CAD in [place] artery (Chronic) Carotid artery stenosis (Chronic) Enlarged prostate without lower urinary tract symptoms (luts) (Chronic) Essential hypertension (Chronic) Hyperlipidemia (Chronic) Prostate cancer (Chronic 01/15/18) "Rising PSA. Pretreatment PSA 6.840 Status post ultrasound-guided biopsies January 15, 2018 Adenocarcinoma the prostate Ulisses 3+3 and 3+4 Prostate volume 98 Prostate density 0.069 Status post completion of radiation therapy July 06, 2018. He received 7000 cGy utilizing hypo-fractionation. Rosacea (Chronic) Surgical History S/P tonsillectomy Family History Father Coronary arteriosclerosis Prostate cancer FH: deafness or hearing loss Hypertension Myocardial infarction Brother Coronary arteriosclerosis Prostate cancer Myocardial infarction Mother Lung cancer Hypertension Unknown FH: deafness or hearing loss Hypertension Uncle Myocardial infarction Denies family history of Ovarian cancer Breast cancer Colorectal cancer Social History Preferred Language: Somali Communication Ability: Effective Implementation Specialist Required: No Beliefs That Will Affect Care: None marital status: Current Living Situation: Spouse current occupational status: retired Other Information That Helps Us Care for You: No Feels Safe at Home: Yes Safety Concerns: Feels Safe At This Time Smoking Status: Unknown if ever smoked Hx Alcohol Use: No Hx Substance Use: No Childhood Exposure to Second-Hand Smoke: No Dental Care, Regularly: Yes Physical Activity Frequency: 3-4 Times per Week Seatbelt Use: always Sunscreen Use: Yes Physical Exam Physical Exam: GENERAL: Patient in no acute distress. HEENT: Head is atraumatic, normocephalic. EOM's intact. Facies symmetric. No perioral cyanosis. NECK: No JVD. JVP is at the level of the clavicle sitting upright. Carotid upstrokes are + 2 bilaterally. No bruits are noted. CHEST/LUNGS: Clear to auscultation throughout all lung barron. No wheezes, rales, or crackles. CVS: S1 and S2 are regular without murmurs, gallops, or rubs. PMI is nondisplaced. No lifts, heaves, or thrills. No abdominal aortic or renal bruits. ABDOMINAL EXAM: Bowel sounds are present. No masses, organomegaly, or tenderness. EXTREMITIES: No clubbing or cyanosis. No edema. Intact posterior tibial and radial pulses bilaterally. NEUROLOGIC EXAM: Patient is awake, alert, and oriented. Pleasant and cooperative. Answers questions appropriately. Speech is clear. Normal movement in all 4 extremities. TELEMETRY: -- NSR. ECHOCARDIOGRAM 01/08/2020: -- Normal LV size and systolic function. -- LVEF 55% to 60%. -- Small thin area of akinesis involving the proximal infero-posterior wall. -- Mild MR. -- No prior studies for comparison. Results & Data ([facility]) Vital Signs (Past 12 Hours) Vital Signs Temp Pulse Pulse Resp BP Pulse Ox 01/08/20 13:00 36.7 C 66 19 117/71 95 01/08/20 12:06 36.7 C 66 19 117/71 95 01/08/20 07:27 37.2 C 76 18 152/80 H 96 01/08/20 07:00 72 01/08/20 04:00 37.1 C 84 18 144/83 H 98 Laboratory Results Laboratory Results - last 24 hr 01/07/20 01/07/20 01/07/20 20:01 20:01 22:59 WBC 10.04 RBC 4.61 L Hgb 13.4 L Hct 39.2 L MCV 85.0 MCH 29.1 MCHC 34.2 RDW Std Deviation 41.2 RDW Coeff of [place] 13.5 Plt Count 190 MPV 9.6 Immature Gran % (Auto) 0.1 Neut % (Auto) 80.2 Lymph % (Auto) 10.2 [place] % (Auto) 8.0 Eos % (Auto) 1.3 Baso % (Auto) 0.2 Immature Gran # (Auto) 0.01 Neut # (Auto) 8.06 H Lymph # (Auto) 1.02 L [place] # (Auto) 0.80 H Eos # (Auto) 0.13 Baso # (Auto) 0.02 PT INR APTT PTT Ratio Sodium 135 L 133 L Potassium 3.5 3.7 Chloride 102 102 Carbon Dioxide 25 27 Anion Gap 8.0 5.0 BUN 23 H 22 H Creatinine 1.55 H 1.44 H Est Cr Clr Drug Dosing 57.6 62.0 Est GFR ( Amer) 53.7 58.6 Est GFR (Non-Af Amer) 46.3 50.6 BUN/Creatinine Ratio 14.8 14.9 Glucose 115 H 129 H Estimat Average Glucose Hemoglobin A1c Calcium 8.8 9.1 Magnesium 2.7 H Total Bilirubin 0.7 AST 22 ALT 37 Alkaline Phosphatase 77 Troponin I 1.460 H* 2.220 H* Total Protein 7.0 Albumin 3.6 Globulin 3.4 Albumin/Globulin Ratio 1.1 Triglycerides Cholesterol LDL Cholesterol, Calc VLDL Cholesterol, Calc HDL Cholesterol Cholesterol/HDL Ratio Urine Color Urine Appearance Urine pH Ur Specific [place] Urine Protein Urine Glucose (UA) Urine Ketones Urine Blood Urine Nitrite Urine Bilirubin Urine Urobilinogen Ur Leukocyte Esterase 01/07/20 01/08/20 01/08/20 23:01 02:22 02:30 WBC RBC Hgb Hct MCV MCH MCHC RDW Std Deviation RDW Coeff of [place] Plt Count MPV Immature Gran % (Auto) Neut % (Auto) Lymph % (Auto) [place] % (Auto) Eos % (Auto) Baso % (Auto) Immature Gran # (Auto) Neut # (Auto) Lymph # (Auto) [place] # (Auto) Eos # (Auto) Baso # (Auto) PT INR APTT 24.1 PTT Ratio 0.9 Sodium 135 L Potassium Chloride 103 Carbon Dioxide 25 Anion Gap 7.0 BUN 18 Creatinine 1.17 Est Cr Clr Drug Dosing 76.3 Est GFR ( Amer) 75.4 Est GFR (Non-Af Amer) 65.0 BUN/Creatinine Ratio 15.8 Glucose 122 H Estimat Average Glucose Hemoglobin A1c Calcium 8.5 Magnesium Total Bilirubin AST ALT Alkaline Phosphatase Troponin I Total Protein Albumin Globulin Albumin/Globulin Ratio Triglycerides Cholesterol LDL Cholesterol, Calc VLDL Cholesterol, Calc HDL Cholesterol Cholesterol/HDL Ratio Urine Color Yellow Urine Appearance Clear Urine pH 6.5 Ur Specific [place] 1.015 Urine Protein Negative Urine Glucose (UA) Negative Urine Ketones Negative Urine Blood Negative Urine Nitrite Negative Urine Bilirubin Negative Urine Urobilinogen Negative Ur Leukocyte Esterase Negative 01/08/20 01/08/20 01/08/20 03:09 05:59 05:59 WBC 13.00 H RBC 4.76 Hgb 13.8 L Hct 40.5 L MCV 85.1 MCH 29.0 MCHC 34.1 RDW Std Deviation 41.6 RDW Coeff of [place] 13.5 Plt Count 205 MPV 9.6 Immature Gran % (Auto) 0.2 Neut % (Auto) 86.9 Lymph % (Auto) 7.7 [place] % (Auto) 4.8 Eos % (Auto) 0.2 Baso % (Auto) 0.2 Immature Gran # (Auto) 0.03 H Neut # (Auto) 11.31 H Lymph # (Auto) 1.00 L [place] # (Auto) 0.62 H Eos # (Auto) 0.02 Baso # (Auto) 0.02 PT 10.7 INR 1.0 APTT 34.4 H PTT Ratio 1.2 Sodium Potassium 4.3 D Chloride Carbon Dioxide Anion Gap BUN Creatinine Est Cr Clr Drug Dosing Est GFR ( Amer) Est GFR (Non-Af Amer) BUN/Creatinine Ratio Glucose Estimat Average Glucose Hemoglobin A1c Calcium Magnesium Total Bilirubin AST ALT Alkaline Phosphatase Troponin I Total Protein Albumin Globulin Albumin/Globulin Ratio Triglycerides Cholesterol LDL Cholesterol, Calc VLDL Cholesterol, Calc HDL Cholesterol Cholesterol/HDL Ratio Urine Color Urine Appearance Urine pH Ur Specific [place] Urine Protein Urine Glucose (UA) Urine Ketones Urine Blood Urine Nitrite Urine Bilirubin Urine Urobilinogen Ur Leukocyte Esterase 01/08/20 01/08/20 01/08/20 05:59 05:59 05:59 WBC RBC Hgb Hct MCV MCH MCHC RDW Std Deviation RDW Coeff of [place] Plt Count MPV Immature Gran % (Auto) Neut % (Auto) Lymph % (Auto) [place] % (Auto) Eos % (Auto) Baso % (Auto) Immature Gran # (Auto) Neut # (Auto) Lymph # (Auto) [place] # (Auto) Eos # (Auto) Baso # (Auto) PT INR APTT PTT Ratio Sodium 136 134 L Potassium 3.8 3.9 Chloride 104 102 Carbon Dioxide 26 24 Anion Gap 6.0 8.0 BUN 17 17 Creatinine 1.09 1.08 Est Cr Clr Drug Dosing 81.9 82.7 Est GFR ( Amer) 82.1 83.0 Est GFR (Non-Af Amer) 70.9 71.6 BUN/Creatinine Ratio 15.2 15.6 Glucose 125 H 125 H Estimat Average Glucose 123 Hemoglobin A1c 5.9 H Calcium 8.7 9.1 Magnesium 2.3 Total Bilirubin 1.1 H D AST 29 ALT 39 Alkaline Phosphatase 81 Troponin I 2.030 H* Total Protein 7.3 Albumin 3.7 Globulin 3.6 Albumin/Globulin Ratio 1.0 Triglycerides 114 Cholesterol 150 LDL Cholesterol, Calc 84 VLDL Cholesterol, Calc 23 HDL Cholesterol 43 Cholesterol/HDL Ratio 4 Urine Color Urine Appearance Urine pH Ur Specific [place] Urine Protein Urine Glucose (UA) Urine Ketones Urine Blood Urine Nitrite Urine Bilirubin Urine Urobilinogen Ur Leukocyte Esterase 01/08/20 12:29 WBC RBC Hgb Hct MCV MCH MCHC RDW Std Deviation RDW Coeff of [place] Plt Count MPV Immature Gran % (Auto) Neut % (Auto) Lymph % (Auto) [place] % (Auto) Eos % (Auto) Baso % (Auto) Immature Gran # (Auto) Neut # (Auto) Lymph # (Auto) [place] # (Auto) Eos # (Auto) Baso # (Auto) PT INR APTT 44.1 H PTT Ratio 1.6 Sodium Potassium Chloride Carbon Dioxide Anion Gap BUN Creatinine Est Cr Clr Drug Dosing Est GFR ( Amer) Est GFR (Non-Af Amer) BUN/Creatinine Ratio Glucose Estimat Average Glucose Hemoglobin A1c Calcium Magnesium Total Bilirubin AST ALT Alkaline Phosphatase Troponin I Total Protein Albumin Globulin Albumin/Globulin Ratio Triglycerides Cholesterol LDL Cholesterol, Calc VLDL Cholesterol, Calc HDL Cholesterol Cholesterol/HDL Ratio Urine Color Urine Appearance Urine pH Ur Specific [place] Urine Protein Urine Glucose (UA) Urine Ketones Urine Blood Urine Nitrite Urine Bilirubin Urine Urobilinogen Ur Leukocyte Esterase Medications Administered Active Medications Generic Name Dose Route Start Last Admin Trade Name Freq PRN Reason Stop Dose Admin Acetaminophen 650 mg 01/07/20 22:39 Tylenol PO 02/06/20 22:38 Q4H PRN Pain or Fever Al Hydrox/Mg Hydrox/Simethicone 15 ml 01/07/20 22:39 Maalox PO 02/06/20 22:38 Q4H PRN Dyspepsia Aspirin 81 mg 01/08/20 09:00 01/08/20 08:22 Ecotrin Ectab PO 02/07/20 08:59 81 mg QAM ZOILA Administration Atorvastatin Calcium 80 mg 01/08/20 21:00 Lipitor PO 02/07/20 20:59 HS ZOILA Sodium Chloride 1,000 mls @ 80 mls/hr 01/07/20 22:39 01/08/20 11:20 Nss 1000ml IV 02/06/20 22:38 80 mls/hr .[id number] ZOILA Administration Magnesium Hydroxide 30 ml 01/07/20 22:39 Milk Of Magnesia PO 02/06/20 22:38 Q12H PRN Constipation Metoprolol Succinate 50 mg 01/08/20 09:00 01/08/20 08:22 Toprol Xl PO 02/07/20 08:59 50 mg QAM ZOILA Administration Nitroglycerin 0.4 mg 01/07/20 22:39 Nitrostat SL 02/06/20 22:38 UD PRN Chest Pain Ondansetron HCl 4 mg 01/07/20 22:39 Zofran IV 02/06/20 22:38 Q6H PRN Nausea Sodium Chloride 2 sprays 01/07/20 23:48 [place] Nasal NA 02/06/20 23:47 QID PRN Congestion Tamsulosin HCl 0.4 mg 01/08/20 21:00 Flomax PO 02/07/20 20:59 QPM ZOILA PG Care Time/CCT Total # of Minutes Spent Total Time Spent with Patient: Total time spent is greater than 50% in coordination of care (as documented) at patient's floor/unit and/or counseling patient: Coding Level of Care Code 10713 Initial Inpt Care Lvl 3 Diagnoses Syncope R55 Syncope type: unspecified Hypotension I95.9 Hypotension type: unspecified hypotension type Acute dehydration E86.0 Elevated troponin R79.89 CAD in [place] artery I25.10 (1) Syncope Syncope type: unspecified Qualified Code(s): R55 - Syncope and collapse (2) Hypotension Hypotension type: unspecified hypotension type Qualified Code(s): I95.9 - Hypotension, unspecified
--- NOTE | 2020-01-08 14:08 | Electrocardiogram Report ---
Test Reason : Blood Pressure : / mmHG Vent. Rate : 061 BPM Atrial Rate : 061 BPM P-R Int : 210 ms QRS Dur : 092 ms QT Int : 428 ms P-R-T Axes : 010 018 051 degrees QTc Int : 430 ms Sinus rhythm with 1st degree A-V block Cannot rule out Inferior infarct , age undetermined Abnormal ECG No previous ECGs available Confirmed by Young German ([id number]) on 01/08/2020 2:08:13 PM Referred By: REFERRED SELF Confirmed By:Young German
--- NOTE | 2020-01-08 14:28 | Electrocardiogram Report ---
Test Reason : Blood Pressure : / mmHG Vent. Rate : 080 BPM Atrial Rate : 080 BPM P-R Int : 216 ms QRS Dur : 096 ms QT Int : 392 ms P-R-T Axes : 040 041 -07 degrees QTc Int : 452 ms Sinus rhythm with 1st degree A-V block Nonspecific ST and T wave abnormality Abnormal ECG When compared with ECG of 07-JAN-2020 19:25, (unconfirmed) Minimal criteria for Inferior infarct are no longer Present Nonspecific T wave abnormality, improved in Lateral leads Confirmed by Young German ([id number]) on 01/08/2020 2:28:05 PM Referred By: REFERRED SELF Confirmed By:Young German
--- NOTE | 2020-01-08 18:19 | Billing Data ---
Date of Service January 08, 2020 Coding Level of Care Code D/C Day Management >30 mins
[2020-01-08] MEDS ORDERED: TAMSULOSIN HCL 0.4 MG CAP PO SCH (21:00)
[2020-01-08] MEDS ORDERED: ATORVASTATIN 40 MG TAB PO SCH (21:00)
--- NOTE | 2020-01-10 13:08 | Coding Query ---
CODING QUERY To promote full compliance with coding requirements relating to patient care, provider participation is requested in all cases of rotoformer backtender uncertainty. Please assist us with the question(s) below: Coding Question(s): The H&P documents, "Syncope: Symptoms seem to be primarily related to acute dehydration, essentially a form of heat exhaustion. However, patient has had a non-STEMI, as noted above.". There is not documentation of Heat Exhaustion on the Discharge Summary. Please clarify below, in your clinical opinion. ( ) Heat Exhaustion was treated during this admission. Please specify below: ( ) due to water depletion or anhydrotic ( x ) due to salt (and water) depletion ( ) Unspecified Heat Exhaustion ( ) Other: Please Specify ( ) Heat Exhaustion is Ruled-Out ( ) Other: Please Specify Physician's Response(s): Thank you Jonelle Franklin Principal Diagnosis: "that condition established after study, to be chiefly responsible for occasioning the admission of the patient to the hospital for care." Co-Existing Principal Diagnosis: "when two or more diagnoses equally meet the criteria for principal diagnosis as determined by the circumstances of admission, diagnostic work up, and/or therapy provided, and the Alphabetic Index, Tabular List, or another coding guideline does not provide sequencing direction, any one of the diagnoses may be sequenced first." "When the physician has documented what appears to be a current diagnosis in the body of the record, but has not included the diagnosis in the final diagnostic statement, the physician should be asked whether the diagnosis should be added." (Source Coding [facility] 2 QTR90. p3-4) LOLIS
== END 2020-01-08 15:00 | disposition home or self-care (01) | DRG 922 ==
LOC: ED 19:17 → 2S 21:42 → SUATTDRO 21:42 → 2S 22:10